=== PATIENT | male | born 1985 | race Caucasian/White ===

== ENCOUNTER 2017-03-25 19:15 | Emergency (ER) | payer SELFPAY ==
[2017-03-25 19:41] VITALS: BP 132/86
--- NOTE | 2017-03-25 20:01 | EDM.PDOC ---
ED HPI GENERAL MEDICAL PROBLEM - General Chief Complaint: Upper Extremity Injury/Pain Stated Complaint: LT HAND SWOLLEN Time Seen by Provider: 03/25/17 20:10 Source of Information: Reports: Patient History Limitations: Reports: No Limitations - History of Present Illness INITIAL COMMENTS - FREE TEXT/NARRATIVE: Patient is a 31-year-old male presents ED complaining of infection to his right index finger. Patient states this past Saturday he noticed a small pimple to the medial aspect of his right index finger along the PIP joint.he attempted to pop it with no drainage. Throughout the course of the weekend swelling has increased along with the redness. Pain is progressively gotten worse. As of today he is able to express some purulent drainage. He is concerned about the redness extending up his hand and forearm. Denies any fever/chills, pain with extension of the index finger against resistance, history of MRSA, or any additional complaints. 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 Oncologic (Cancer) History: Reports: Other (See Below) Other Oncologic History: right kidney tumor removal - Past Surgical History Musculoskeletal Surgical History: Reports: ORIF Social & Family History - Family History Family Medical History: Noncontributory - Tobacco Use Smoking Status *Q: Current Every Day Smoker Years of Tobacco use: 10 Packs/Tins Daily: 0.3 Month Tobacco Last Used: 2012 - Caffeine Use Caffeine Use: Reports: Coffee - Recreational Drug Use Recreational Drug Use: No Recreational Drug Type: Reports: Marijuana/Hashish - Living Situation & Occupation Living situation: Reports: , with Spouse Occupation: Employed Review of Systems - Review of Systems Review Of Systems: See Below Constitutional: Denies: Chills, Diaphoresis, Fever Respiratory: Reports: No Symptoms Cardiovascular: Reports: No Symptoms GI/Abdominal: Reports: No Symptoms Musculoskeletal: Reports: Hand Pain (redness to the right index finger. Wound noted to the medial aspect of the PIP. No drainage present. Redness extends up his hand and forearm. Increased warmth noted.) Skin: Reports: Wound Neurological: Reports: No Symptoms ED EXAM, GENERAL - Physical Exam Exam: See Below Exam Limited By: No Limitations General Appearance: Alert, WD/WN, No Apparent Distress Ears: Hearing Grossly Normal Nose: Normal Inspection Throat/Mouth: Normal Voice, No Airway Compromise Neck: Normal Inspection, Supple Respiratory/Chest: No Respiratory Distress, No Accessory Muscle Use Cardiovascular: Normal Peripheral Pulses, Regular Rate, Rhythm Peripheral Pulses: 2+: Radial (R) Extremities: Other (swelling noted to the PIP joint of the right index finger with a wound located in the medial aspect with no drainage present. Redness and swelling present with redness extending up his hand and forearm. Increased warmth noted.) Neurological: Alert, Oriented, Normal Cognition, No Motor/Sensory Deficits Psychiatric: Normal Affect, Normal Mood Skin Exam: Warm, Dry Course - Vital Signs Last Recorded V/S: Last Vital Signs Temp 97.9 F 03/25/17 19:38 Pulse 81 03/25/17 19:38 Resp 18 03/25/17 19:38 BP 132/86 03/25/17 19:38 Pulse Ox 100 03/25/17 19:38 - Orders/Labs/Meds Orders: Active Orders 24 hr Category Date Time Status Peripheral IV Care [RC] . DIRECTED Care 03/25/17 20:17 Active Vaccines to be Administered [RC] PER UNIT ROUTINE Care 03/25/17 21:31 Active Peripheral IV Insertion Adult [OM.PC] Stat Oth 03/25/17 20:17 Ordered Labs: Laboratory Tests 03/25/17 03/25/17 Range/Units 20:25 20:25 WBC 10.12 H (4.23-9.07) K/mm3 RBC 4.80 (4.63-6.08) M/mm3 Hgb 14.3 (13.7-17.5) gm/L Hct 42.4 (40.1-51.0) % MCV 88.3 (79.0-92.2) fl MCH 29.8 (25.7-32.2) pg MCHC 33.7 (32.2-35.5) g/dl RDW Std Deviation 42.5 (35.1-43.9) fL Plt Count 227 (163-337) K/mm3 MPV 10.0 (9.4-12.3) fl Neut % (Auto) 70.0 H (34.0-67.9) % Lymph % (Auto) 18.5 L (21.8-53.1) % [place] % (Auto) 7.8 (5.3-12.2) % Eos % (Auto) 3.3 (0.8-7.0) Baso % (Auto) 0.3 (0.1-1.2) % Neut # (Auto) 7.09 H (1.78-5.38) K/mm3 Lymph # (Auto) 1.87 (1.32-3.57) K/mm3 [place] # (Auto) 0.79 (0.30-0.82) K/mm3 Eos # (Auto) 0.33 (0.04-0.54) K/mm3 Baso # (Auto) 0.03 (0.01-0.08) K/mm3 Sodium 141 (136-145) mEq/L Potassium 4.3 (3.5-5.1) mEq/L Chloride 104 (98-107) mEq/L Carbon Dioxide 30 (21-32) mEq/L Anion Gap 11.3 (5-15) BUN 10 (7-18) mg/dL Creatinine 1.2 (0.7-1.3) mg/dL Est Cr Clr Drug Dosing 95.29 mL/min Estimated GFR (MDRD) > 60 (>60) mL/min BUN/Creatinine Ratio 8.3 L (14-18) Glucose 96 (74-106) mg/dL Calcium 9.0 (8.5-10.1) mg/dL Total Bilirubin 0.4 (0.2-1.0) mg/dL AST 31 (15-37) U/L ALT 50 (16-63) U/L Alkaline Phosphatase 73 (46-116) U/L C-Reactive Protein 0.2 (<1.0) mg/dL Total Protein 7.3 (6.4-8.2) g/dl Albumin 4.1 (3.4-5.0) g/dl Globulin 3.2 gm/dL Albumin/Globulin Ratio 1.3 (1-2) Meds: Medications Discontinued Medications Generic Name Dose Route Start Last Admin Trade Name Juliann PRN Reason Stop Dose Admin Diphtheria/Tetanus/Acell Pertussis 0.5 ml 03/25/17 21:31 03/25/17 21:48 Adacel IM 03/25/17 21:32 0.5 ml .ONCE ONE Administration Clindamycin Phosphate 600 mg/ 104 mls @ 100 mls/hr 03/25/17 21:23 03/25/17 21 :28 Sodium Chloride IV 03/25/17 22:25 100 mls/hr ONETIME ONE Administration Sodium Chloride 10 ml 03/25/17 20:16 03/25/17 21:28 Saline Flush FLUSH 10 ml ASDIRECTED PRN Administration Keep Vein Open - Re-Assessments/Exams Free Text/Narrative Re-Assessment/Exam: Patient has cellulitis to the right right index finger with redness extending up his arm. He has one kidney with the other removed many years ago due to wilms tumor. States Urine has been dark recently. Concerned about renal status prior to administering iv antibiotics. IV will be established with basic labs ordered. 03/25/17 21:24 Labs reviewed: White blood cell count 10.12, neutrophil percentage is 70.0, neutrophil number is 7.09, hemoglobin 14.3, chemistry essentially normal, and CRP 0.2. Ordered clindamycin 600 mg IV. IV antibiotics have completed. Will discharge patient home with instructions as documented. Departure - Departure Time of Disposition: 21:52 Disposition: Home, Self-Care 01 Condition: Good Clinical Impression: Cellulitis of finger of left hand, Cellulitis of left index finger, Lymphadenitis Cellulitis Qualifiers: Site of cellulitis: extremity Site of cellulitis of extremity: upper extremity Laterality: left Qualified Code(s): L03.114 - Cellulitis of left upper limb - Discharge Information Prescriptions: Clindamycin HCl [Cleocin] 450 mg PO Q6H #84 cap Instructions: Cellulitis, Adult, [id number] Referrals: Kenyon Stern MD [Primary Care Provider] - Forms: ED Department Discharge Additional Instructions: Take the full course of antibiotics as prescribed. Suggest taking an over-the- counter probiotic to mitigate any side effects of the clindamycin. For pain take ibuprofen and Tylenol in alternating fashion. Elevate when able to reduce swelling and pain. Apply warm compresses to affected area 4 times daily, 30 minutes in duration, this will allow for wound to open up and drain. Keep area covered if draining. Follow-up with her PCP in the next 3-5 days if symptoms are not improving. Return to the ED for any new or worsening symptoms. - My Orders Last 24 Hours: My Active Orders 03/25/17 20:17 Peripheral IV Care [RC] . DIRECTED Peripheral IV Insertion Adult [OM.PC] Stat 03/25/17 21:31 Vaccines to be Administered [RC] PER UNIT ROUTINE - Assessment/Plan Last 24 Hours: My Active Orders 03/25/17 20:17 Peripheral IV Care [RC] . DIRECTED Peripheral IV Insertion Adult [OM.PC] Stat 03/25/17 21:31 Vaccines to be Administered [RC] PER UNIT ROUTINE
[2017-03-25] MEDS ORDERED: Sodium Chloride 0.9% 10 ML Syringe FLUSH PRN (20:16)
[2017-03-25] MEDS ORDERED: Clindamycin Phosphate 600 MG in Sodium Chloride 0.9% 100 ML IV ONE (21:23)
[2017-03-25] MEDS ORDERED: Diphtheria,Pertussis(Acell),Tetanus Vaccine 0.5 ML SDV IM ONE (21:31)
== END 2017-03-25 22:33 | disposition home or self-care (01) ==
LOC: JD.ED 19:15
DX: L03.012 Cellulitis of left finger (principal); L03.114 Cellulitis of left upper limb; I88.9 Nonspecific lymphadenitis, unspecified; F17.210 Nicotine dependence, cigarettes, uncomplicated; Z88.1 Allergy status to other antibiotic agents; Z88.0 Allergy status to penicillin; Z23 Encounter for immunization
CPT/HCPCS: 36415; 80053; 85025; 86140; 90471; 90715; 96365; 99283; J7030; J7050; 99284

== ENCOUNTER 2019-01-26 13:05 | Emergency (ER) | payer SELFPAY ==
[2019-01-26 13:17] VITALS: BP 136/93
[2019-01-26] MEDS ORDERED: Ketorolac 30 MG/ML SDV IM ONE (14:05)
--- NOTE | 2019-01-26 14:12 | EDM.PDOC ---
ED HPI GENERAL MEDICAL PROBLEM - General Chief Complaint: ENT Problem Stated Complaint: DENTAL COMPLAINT Time Seen by Provider: 01/26/19 13:39 Source of Information: Reports: Patient, RN Notes Reviewed History Limitations: Reports: No Limitations - History of Present Illness INITIAL COMMENTS - FREE TEXT/NARRATIVE: Patient is a 33-year-old male who presents to the ED for evaluation of a dental complaint. He states that yesterday his right upper canine started to throb. He notes that this tooth has been giving him some troubles for the past week or so, and that he felt a small part chip off of the affected tooth. This has not been too painful up until yesterday and today. Now he has developed facial swelling that radiates up to his right lower eyelid. He does not have any blurred or double vision at this time. He states that he has not felt feverish or had chills, but he has felt a bit nauseous with some lethargy. He states there is some slight pressure sensitivity with chewing. He notes that he has an allergy to amoxicillin and penicillins. 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 Oncologic (Cancer) History: Reports: Other (See Below) Other Oncologic History: right kidney tumor removal - Past Surgical History Musculoskeletal Surgical History: Reports: ORIF Social & Family History - Family History Family Medical History: Noncontributory - Tobacco Use Smoking Status *Q: Former Smoker Used Tobacco, but Quit: Yes Month/Year Tobacco Last Used: 2009 - Caffeine Use Caffeine Use: Reports: Coffee - Living Situation & Occupation Living situation: Reports: , with Spouse Occupation: Employed ED ROS ENT - Review of Systems Review Of Systems: See Below Constitutional: Reports: No Symptoms HEENT: Reports: Other (R sided facial swelling) Respiratory: Reports: No Symptoms Cardiovascular: Reports: No Symptoms Endocrine: Reports: No Symptoms GI/Abdominal: Reports: No Symptoms : Reports: No Symptoms Musculoskeletal: Reports: No Symptoms Skin: Reports: No Symptoms Neurological: Reports: No Symptoms Psychiatric: Reports: No Symptoms Hematologic/Lymphatic: Reports: No Symptoms ED EXAM, ENT - Physical Exam Exam: See Below Exam Limited By: No Limitations General Appearance: Alert, WD/WN, No Apparent Distress Eye Exam: Bilateral Eye: EOMI, Normal Inspection, PERRL Ears: Normal External Exam Nose: Normal Inspection Mouth/Throat: Normal Inspection, Normal Gums, Normal Lips, Normal Oropharynx, Dental Pain (Right upper incisor, there is a portion anteriorly that appears to have broken off or eroded.). No: Pharyngeal Erythema Head: Atraumatic, Normocephalic, Facial Swelling (Noted to the right cheek and right lower eyelid. This is slightly tender to palpation.) Neck: Normal Inspection, Supple, Non-Tender, Full Range of Motion Respiratory/Chest: No Respiratory Distress, Lungs Clear, Normal Breath Sounds, No Accessory Muscle Use, Chest Non-Tender Cardiovascular: Normal Peripheral Pulses, Regular Rate, Rhythm, No Murmur Neurological: Alert, Oriented, Normal Cognition, No Motor/Sensory Deficits Psychiatric: Normal Affect, Normal Mood Skin: Warm, Dry, Intact, Normal Color, No Rash Course - Vital Signs Last Recorded V/S: Last Vital Signs Temp 97.9 F 01/26/19 13:13 Pulse 92 01/26/19 13:13 Resp 19 01/26/19 13:13 BP 136/93 H 01/26/19 13:13 Pulse Ox 100 01/26/19 13:13 - Orders/Labs/Meds Meds: Medications Discontinued Medications Generic Name Dose Route Start Last Admin Trade Name Freq PRN Reason Stop Dose Admin Ketorolac Tromethamine 30 mg 01/26/19 14:05 01/26/19 14:15 Toradol IM 01/26/19 14:06 30 mg ONETIME ONE Administration - Re-Assessments/Exams Free Text/Narrative Re-Assessment/Exam: 01/26/19 14:15 Patient presents to the ED for the evaluation of a dental complaint. I have ordered a 30 mg IM injection of Toradol for initial pain relief. And we'll provide the patient with prescription for antibiotics that he can start taking at home. He has been prescribed clindamycin, and directed to follow up with dentist provider of his choice. He states that he has seen Dr. Raman in the past , and will follow-up with him. I urged him to call his office today to see if he could get an appointment sometime soon. Departure - Departure Time of Disposition: 14:16 Disposition: Home, Self-Care 01 Condition: Fair Clinical Impression: Pain, dental - Discharge Information *PRESCRIPTION DRUG MONITORING PROGRAM REVIEWED*: No *COPY OF PRESCRIPTION DRUG MONITORING REPORT IN PATIENT KADE[place]: No Prescriptions: Clindamycin HCl 300 mg PO QID #30 capsule Instructions: Diet and Dental Disease Referrals: Carl Ta PA-C [Primary Care Provider] - Forms: ED Department Discharge Additional Instructions: You have been evaluated in the ED for your dental pain. You have been provided with a script for Clindamycin. This was electronically sent to [facility] located on [address]. Please take this medication as directed. (2 tabs on the very first dose, and then one tab 4 times daily for 7 days or until gone). Aleve provides good pain relief for dental pain. Please take 1-2 tabs twice daily as needed for pain. You may also take 600 mg ibuprofen every 6 hours as needed for further pain relief. You may use hot pack/ ice packs to the affected area as tolerated in 15-20 minute intervals. You will ultimately need to find a dentist to provide definitive management of your dental pain. Recommend that you do so at your earliest convenience. Please return to the ED if your symptoms change or worsen.
== END 2019-01-26 14:30 | disposition home or self-care (01) ==
LOC: JD.ED 13:05
DX: K08.89 Other specified disorders of teeth and supporting structures (principal); Z87.891 Personal history of nicotine dependence; Z79.899 Other long term (current) drug therapy; Z88.1 Allergy status to other antibiotic agents; Z88.0 Allergy status to penicillin
CPT/HCPCS: 96372; 99282; J1885; 99283